=== PATIENT | female | born 1995 | race African-American/Black ===

== ENCOUNTER 2020-11-14 22:45 | Inpatient (IN) | payer OTHER ==
[~2020-11-14 22:45] MED LIST: ABILIFY10 MG PO; ATARAX25 MG PO; BENTYL10 MG PO; CARAFATE1 G1 PO; CIPRO500 MG PO; CYCLOBENZAPRINE5 MG PO; FEXMID7.5 MG PO; HABITROL TOP; HYDROCODON-ACE1 EAC4 PO; K-DUR20 MEQ PO; KETOROLAC TROME10 MG PO; LITHIUM300 MG PO; MEDROL 4MG DOSEP4 MG PO; MELATONIN5 M2 PO; MIRALAX 238GM238 GM PO; MOBIC15 MG PO; NICOTINE GUM4 MG PO; NORCO 5-325 TA1 EACH PO; ONDANSETRON ODT4 MG PO; PAXIL10 MG PO; PEPCID AC20 MG PO; PERCOCET 5-3251 EACH PO; PHENERGAN12.5 M1 PO; PHENERGAN25 M1 PO; PHENERGAN25 MG PR; POTASSIUM CHLO20 ME2 PO; POTASSIUM20 MEQ/11 PO; PRILOSEC20 MG PO; PROMETHAZINE 2525 MG PO; PROMETHAZINE HC25 MG PR; PROMETHEGA12.5 MG/SU PR; PROTONIX 40MG T40 MG PO; REGLAN10 M1 PO; REGLAN10 MG PO; SUCRALFATE1 GM/10 ML PO; TESSALON PERLE100 MG PO; TRAMADOL HCL50 MG PO; TRAZODONE 50MG50 MG PO; TRAZODONE HCL50 MG PO; ULTRAM50 MG PO; VENTOLIN HFA IN18 GM INH; ZOFRAN ODT4 MG SL; ZOFRAN4 MG PO; ZOFRAN8 MG PO
[2020-11-15 00:28] LABS: BASOPHIL 0.2 % (0-2); EOSINOPHIL 0 % (0-5); HCT 47.5 % (37.0-47.0); HGB 16.2 g/dl (12.5-16.0); MCH 28.4 pg (25.0-31.0); MCHC 34.1 g/dL (32.0-36.0); MCV 83.3 fL (78.0-100.0); MONOCYTE 5.6 % (0-12); MPV 11.5 fL (6.0-9.5); NEUTROPHIL 77.6 % (41-80); NRBC 0; PLT 444 K/uL (150-400); RDW 13.9 % (11.5-14.0); WBC 12.9 K/uL (4.0-10.5)
[2020-11-15 00:29] LABS: BILIRUBIN 1+ mg/dL (NEGATIVE); BLOOD TRACE-INTACT Ery/uL (NEGATIVE); CLARITY HAZY (CLEAR); COLOR YELLOW (YELLOW); GLUCOSE (U) NORMAL (NORMAL); LEUKOCYTES NEGATIVE Leu/uL (NEGATIVE); NITRITE NEGATIVE (NEGATIVE); PROTEIN 1+ mg/dL (NEGATIVE); SPECIFIC GRAVITY >=1.030 (1.001-1.030); UROBILINOGEN 0.2 mg/dL (0.2-1.0)
[2020-11-15 00:33] LABS: ECSTASY (MDMA) NEGATIVE (NEGATIVE); MARIJUANA (THC) POSITIVE (NEGATIVE); METHADONE NEGATIVE (NEGATIVE); OPIATES NEGATIVE (NEGATIVE)
[2020-11-15 00:34] LABS: AMPHETAMINES NEGATIVE (NEGATIVE); BARBITURATES NEGATIVE (NEGATIVE); OXYCODONE NEGATIVE (NEGATIVE)
[2020-11-15 00:38] LABS: BACTERIA 4+
[2020-11-15 00:59] LABS: ALBUMIN 4.9 g/dL (3.4-5.0); BILIRUBIN - TOTAL 1.4 mg/dL (0.2-1.0); CREATININE 3.51 mg/dL (0.51-0.95); GLOBULIN (CALCULATION) 5.6 g/dL; MAGNESIUM 3.2 mg/dL (1.8-2.4); TOTAL PROTEIN 10.5 g/dL (6.4-8.2)
[2020-11-15] MEDS ORDERED: DICYCLOMINE HCL20 MG PO (04:59)
[2020-11-15 09:35] LABS: HCG (URINE) SCREEN NEGATIVE (NEGATIVE)
[2020-11-15 10:33] LABS: BASOPHIL 0.3 % (0-2); EOSINOPHIL 0 % (0-5); HCT 44.3 % (37.0-47.0); HGB 15.1 g/dl (12.5-16.0); LYMPHOCYTE 19.9 % (15-48); MCH 28.5 pg (25.0-31.0); MCHC 34.1 g/dL (32.0-36.0); MCV 83.7 fL (78.0-100.0); MONOCYTE 6.4 % (0-12); MPV 11.2 fL (6.0-9.5); NEUTROPHIL 73.1 % (41-80); NRBC 0; PLT 346 K/uL (150-400); RBC 5.29 M/uL (4.20-5.40); RDW 13.6 % (11.5-14.0); WBC 13.8 K/uL (4.0-10.5)
[2020-11-15 10:50] LABS: BUN/CREAT RATIO (CALC) 7.6 RATIO; CREATININE 3.29 mg/dL (0.51-0.95)
[2020-11-15 10:53] LABS: POTASSIUM 3.1 mmol/L (3.5-5.1)
--- NOTE | 2020-11-15 14:42 | NUR ---
PT LIVES WITH SON; INDEPENDENT WITH ADL'S PLEASE ADVISE OF D/C NEEDS. NETWORK PROGRAMMER FOLLOWS PATIENT
[2021-01-31] MEDS ORDERED: GABAPENTIN100 MG PO (09:34)
[2021-04-20] MEDS ORDERED: HYDROCODON-ACE1 EAC2 PO (10:47)
[2021-04-20] MEDS ORDERED: MIRALAX17 GM PO (10:47)
== END 2020-11-15 12:31 | disposition other institution (70) | DRG 369 ==
LOC: FER 22:45 → FMS 11-15 03:13
PROVIDERS: Allergy & Immunology Allergy; Emergency Medicine; ADMIT Internal Medicine
DX: K22.3 Perforation of esophagus (principal); N17.9 Acute kidney failure, unspecified; N39.0 Urinary tract infection, site not specified; J45.909 Unspecified asthma, uncomplicated; K21.9 Gastro-esophageal reflux disease without esophagitis; F41.9 Anxiety disorder, unspecified; F31.9 Bipolar disorder, unspecified; E87.5 Hyperkalemia; F17.210 Nicotine dependence, cigarettes, uncomplicated; E86.0 Dehydration; G43.909 Migraine, unspecified, not intractable, without status migrainosus; R11.10 Vomiting, unspecified; F12.90 Cannabis use, unspecified, uncomplicated; Z20.822 Contact with and (suspected) exposure to COVID-19; D75.1 Secondary polycythemia; Z90.49 Acquired absence of other specified parts of digestive tract; Z98.890 Other specified postprocedural states; Z88.5 Allergy status to narcotic agent; Z88.8 Allergy status to other drugs, medicaments and biological substances; J98.2 Interstitial emphysema
CPT/HCPCS: 36415; 71250; 80048; 80053; 80305; 81001; 83605; 83690; 83735; 84145; 84703; 85025; 93005; 94010; C9113; J0610; J0692; J0696; J1170; J1650; J1885; J2060; J2405; J2543; J2550; J7030; J7120; U0002

== ENCOUNTER 2020-11-21 20:51 | Day surgery (SDCO) | payer OTHER ==
[~2020-11-21] VITALS: Ht 172.7 cm; Wt 63.7 kg
[~2020-11-21 20:51] MED LIST changes: +DICYCLOMINE HCL20 MG PO
[2020-11-21 22:23] LABS: BASOPHIL 0.7 % (0-2); EOSINOPHIL 0.2 % (0-5); HCT 43.5 % (37.0-47.0); HGB 14.6 g/dl (12.5-16.0); LYMPHOCYTE 24.8 % (15-48); MCH 28.3 pg (25.0-31.0); MCHC 33.6 g/dL (32.0-36.0); MCV 84.5 fL (78.0-100.0); MONOCYTE 6.9 % (0-12); MPV 11.1 fL (6.0-9.5); NEUTROPHIL 67.1 % (41-80); NRBC 0; PLT 363 K/uL (150-400); RBC 5.15 M/uL (4.20-5.40); RDW 13.4 % (11.5-14.0); WBC 8.8 K/uL (4.0-10.5)
[2020-11-21 22:39] LABS: ALBUMIN 4.5 g/dL (3.4-5.0); BILIRUBIN - TOTAL 1.1 mg/dL (0.2-1.0); CREATININE 1.21 mg/dL (0.51-0.95); GLOBULIN (CALCULATION) 4.4 g/dL; TOTAL PROTEIN 8.9 g/dL (6.4-8.2)
[2020-11-21 22:54] LABS: LACTIC ACID 2.5 mmol/L (0.4-1.9)
[2020-11-21 22:55] LABS: POTASSIUM 2.4 mmol/L (3.5-5.1)
[2020-11-22 06:48] LABS: BASOPHIL 0.8 % (0-2); EOSINOPHIL 0.8 % (0-5); HCT 39.8 % (37.0-47.0); HGB 13.2 g/dl (12.5-16.0); LYMPHOCYTE 39.4 % (15-48); MCH 28.1 pg (25.0-31.0); MCHC 33.2 g/dL (32.0-36.0); MCV 84.9 fL (78.0-100.0); MONOCYTE 7.9 % (0-12); MPV 11.5 fL (6.0-9.5); NRBC 0; PLT 306 K/uL (150-400); RBC 4.69 M/uL (4.20-5.40); RDW 13.5 % (11.5-14.0); WBC 9.3 K/uL (4.0-10.5)
[2020-11-22 07:21] LABS: BUN/CREAT RATIO (CALC) 8.2 RATIO; CREATININE 0.85 mg/dL (0.51-0.95); POTASSIUM 3.2 mmol/L (3.5-5.1)
--- NOTE | 2020-11-22 09:08 | NUR ---
LIVES WITH FAMILY AND REPORTS SHE IS INDEPENDENT WITH ADL'S PLEASE ADVISE OF ANY DISCHARGE NEEDS
[2020-11-23 05:55] LABS: BASOPHIL 0.8 % (0-2); EOSINOPHIL 2.7 % (0-5); HGB 11.8 g/dl (12.5-16.0); LYMPHOCYTE 59.4 % (15-48); MCH 28.5 pg (25.0-31.0); MCHC 33.7 g/dL (32.0-36.0); MCV 84.5 fL (78.0-100.0); MONOCYTE 5.9 % (0-12); MPV 11.2 fL (6.0-9.5); NRBC 0; PLT 272 K/uL (150-400); RBC 4.14 M/uL (4.20-5.40); RDW 13.2 % (11.5-14.0)
[2020-11-23 06:18] LABS: BUN/CREAT RATIO (CALC) 8.9 RATIO; CREATININE 0.79 mg/dL (0.51-0.95); POTASSIUM 2.9 mmol/L (3.5-5.1)
[2020-11-24 11:23] LABS: HGB 11.3 g/dl (12.5-16.0); MCH 28.5 pg (25.0-31.0); MCHC 32.3 g/dL (32.0-36.0); MCV 88.4 fL (78.0-100.0); MPV 11.5 fL (6.0-9.5); RBC 3.96 M/uL (4.20-5.40); RDW 13.5 % (11.5-14.0); WBC 4.4 K/uL (4.0-10.5)
[2020-11-24 12:11] LABS: BUN/CREAT RATIO (CALC) 4.7 RATIO; CREATININE 0.86 mg/dL (0.51-0.95); MAGNESIUM 2.1 mg/dL (1.8-2.4); POTASSIUM 4.3 mmol/L (3.5-5.1)
[2020-11-24] MEDS ORDERED: ONDANSETRON ODT4 MG PO (15:06)
[2020-11-24] MEDS ORDERED: NORCO 5-325 TA1 EACH PO (15:06)
[2021-01-31] MEDS ORDERED: GABAPENTIN100 MG PO (09:34)
[2021-04-20] MEDS ORDERED: MIRALAX17 GM PO (10:47)
[2021-04-20] MEDS ORDERED: HYDROCODON-ACE1 EAC2 PO (10:47)
== END 2020-11-24 16:45 | disposition home or self-care (01) ==
LOC: FER 20:51 → FMS 11-22 00:36
PROVIDERS: Emergency Medicine Emergency Medical Services; Internal Medicine; Nurse Practitioner; ADMIT Internal Medicine
DX: R11.15 Cyclical vomiting syndrome unrelated to migraine (principal); K29.70 Gastritis, unspecified, without bleeding; K44.9 Diaphragmatic hernia without obstruction or gangrene; F12.188 Cannabis abuse with other cannabis-induced disorder; F31.9 Bipolar disorder, unspecified; F17.210 Nicotine dependence, cigarettes, uncomplicated; E86.0 Dehydration; E87.6 Hypokalemia; J45.909 Unspecified asthma, uncomplicated; Z90.49 Acquired absence of other specified parts of digestive tract; Z98.890 Other specified postprocedural states; Z88.6 Allergy status to analgesic agent; Z88.8 Allergy status to other drugs, medicaments and biological substances; Z20.822 Contact with and (suspected) exposure to COVID-19
CPT/HCPCS: 36415; 74022; 80048; 80053; 83605; 83690; 83735; 84145; 84703; 85025; C9113; G0378; J0780; J1170; J2405; J2550; J3480; J7120; U0002

== ENCOUNTER 2020-11-29 17:19 | Emergency (ER) | payer OTHER ==
[2020-11-29 19:11] LABS: BILIRUBIN NEGATIVE (NEGATIVE); BLOOD 3+ Ery/uL (NEGATIVE); CLARITY HAZY (CLEAR); COLOR YELLOW (YELLOW); GLUCOSE (U) NORMAL (NORMAL); LEUKOCYTES NEGATIVE Leu/uL (NEGATIVE); NITRITE NEGATIVE (NEGATIVE); PROTEIN 1+ mg/dL (NEGATIVE); SPECIFIC GRAVITY 1.015 (1.001-1.030); UROBILINOGEN 0.2 mg/dL (0.2-1.0); pH 8.5 (5.0-9.0)
[2020-11-29 19:15] LABS: AMPHETAMINES NEGATIVE (NEGATIVE); BARBITURATES NEGATIVE (NEGATIVE); ECSTASY (MDMA) NEGATIVE (NEGATIVE); MARIJUANA (THC) POSITIVE (NEGATIVE); METHADONE NEGATIVE (NEGATIVE); OPIATES POSITIVE (NEGATIVE); OXYCODONE NEGATIVE (NEGATIVE)
[2020-11-29 19:24] LABS: BACTERIA 1+; SQUAMOUS EPITHELIAL CELLS 20-50; URINARY RBC TNTC
[2020-11-29 20:56] LABS: BASOPHIL 0.6 % (0-2); EOSINOPHIL 0.1 % (0-5); HCT 35.9 % (37.0-47.0); LYMPHOCYTE 15.1 % (15-48); MCH 28.9 pg (25.0-31.0); MCHC 33.4 g/dL (32.0-36.0); MCV 86.5 fL (78.0-100.0); MONOCYTE 4.2 % (0-12); MPV 11.3 fL (6.0-9.5); NEUTROPHIL 79.7 % (41-80); NRBC 0; PLT 277 K/uL (150-400); RBC 4.15 M/uL (4.20-5.40); RDW 14.6 % (11.5-14.0); WBC 7.2 K/uL (4.0-10.5)
[2020-11-29 21:13] LABS: ALBUMIN 3.8 g/dL (3.4-5.0); BILIRUBIN - TOTAL 0.8 mg/dL (0.2-1.0); BUN/CREAT RATIO (CALC) 7.9 RATIO; CREATININE 0.89 mg/dL (0.51-0.95); GLOBULIN (CALCULATION) 3.7 g/dL; POTASSIUM 3.5 mmol/L (3.5-5.1); TOTAL PROTEIN 7.5 g/dL (6.4-8.2)
[2020-11-29 21:18] LABS: LACTIC ACID 1.6 mmol/L (0.4-1.9)
[2020-11-29] MEDS ORDERED: ZOFRAN4 M1 PO (21:35)
[2021-01-31] MEDS ORDERED: GABAPENTIN100 MG PO (09:34)
[2021-04-20] MEDS ORDERED: MIRALAX17 GM PO (10:47)
[2021-04-20] MEDS ORDERED: HYDROCODON-ACE1 EAC2 PO (10:47)
== END 2020-11-29 21:55 | disposition home or self-care (01) ==
LOC: FER 17:19
PROVIDERS: Nurse Practitioner Family
DX: R10.84 Generalized abdominal pain (principal); R11.2 Nausea with vomiting, unspecified; F19.90 Other psychoactive substance use, unspecified, uncomplicated; J45.909 Unspecified asthma, uncomplicated; F17.210 Nicotine dependence, cigarettes, uncomplicated; Z87.19 Personal history of other diseases of the digestive system; Z90.49 Acquired absence of other specified parts of digestive tract; Z88.5 Allergy status to narcotic agent; Z88.8 Allergy status to other drugs, medicaments and biological substances
CPT/HCPCS: 36415; 80053; 80305; 81001; 83605; 85025; 99284; J1630; J1885

== ENCOUNTER 2020-12-01 13:42 | Emergency (ER) | payer OTHER ==
[~2020-12-01 13:42] MED LIST changes: +ZOFRAN4 M1 PO
[2020-12-01 17:09] LABS: BASOPHIL 0.7 % (0-2); EOSINOPHIL 0.3 % (0-5); HCT 40.3 % (37.0-47.0); HGB 13.6 g/dl (12.5-16.0); MCH 28.5 pg (25.0-31.0); MCHC 33.7 g/dL (32.0-36.0); MCV 84.5 fL (78.0-100.0); MONOCYTE 6.5 % (0-12); MPV 11.6 fL (6.0-9.5); NEUTROPHIL 64.1 % (41-80); NRBC 0; PLT 335 K/uL (150-400); RBC 4.77 M/uL (4.20-5.40); RDW 14.3 % (11.5-14.0); WBC 7.6 K/uL (4.0-10.5)
[2020-12-01 17:22] LABS: BUN/CREAT RATIO (CALC) 13.2 RATIO; CREATININE 0.91 mg/dL (0.51-0.95); POTASSIUM 2.9 mmol/L (3.5-5.1)
[2020-12-01 17:26] LABS: BILIRUBIN NEGATIVE (NEGATIVE); BLOOD NEGATIVE Ery/uL (NEGATIVE); CLARITY CLOUDY (CLEAR); COLOR YELLOW (YELLOW); GLUCOSE (U) NORMAL (NORMAL); LEUKOCYTES NEGATIVE Leu/uL (NEGATIVE); NITRITE NEGATIVE (NEGATIVE); PROTEIN 1+ mg/dL (NEGATIVE); SPECIFIC GRAVITY >=1.030 (1.001-1.030)
[2020-12-01 17:32] LABS: AMORPHOUS URATES CRYSTALS MODERATE; BACTERIA TRACE
[2020-12-01] MEDS ORDERED: PHENERGAN25 M1 PO (19:51)
[2021-01-31] MEDS ORDERED: GABAPENTIN100 MG PO (09:34)
[2021-04-20] MEDS ORDERED: HYDROCODON-ACE1 EAC2 PO (10:47)
[2021-04-20] MEDS ORDERED: MIRALAX17 GM PO (10:47)
== END 2020-12-01 20:20 | disposition home or self-care (01) ==
LOC: FER 13:42
PROVIDERS: Nurse Practitioner Family
DX: R11.10 Vomiting, unspecified (principal); Z90.49 Acquired absence of other specified parts of digestive tract; Z88.5 Allergy status to narcotic agent; Z88.8 Allergy status to other drugs, medicaments and biological substances
CPT/HCPCS: 36415; 80048; 81001; 85025; 93005; 96372; J1630; J2550; J3480; J7030

== ENCOUNTER 2020-12-03 11:50 | Inpatient (IN) | payer OTHER ==
[~2020-12-03] VITALS: Ht 170.2 cm; Wt 66.4 kg
[2020-12-03 13:28] LABS: BASOPHIL 0.8 % (0-2); EOSINOPHIL 0.8 % (0-5); HCT 39.2 % (37.0-47.0); HGB 13.3 g/dl (12.5-16.0); LYMPHOCYTE 20.2 % (15-48); MCHC 33.9 g/dL (32.0-36.0); MCV 85.6 fL (78.0-100.0); MONOCYTE 5.2 % (0-12); MPV 10.9 fL (6.0-9.5); NEUTROPHIL 72.8 % (41-80); NRBC 0; PLT 277 K/uL (150-400); RBC 4.58 M/uL (4.20-5.40); RDW 14.4 % (11.5-14.0); WBC 8.8 K/uL (4.0-10.5)
[2020-12-03 13:46] LABS: ALBUMIN 4.2 g/dL (3.4-5.0); BILIRUBIN - TOTAL 2.5 mg/dL (0.2-1.0); BUN/CREAT RATIO (CALC) 8.1 RATIO; CREATININE 0.74 mg/dL (0.51-0.95); POTASSIUM 2.7 mmol/L (3.5-5.1); TOTAL PROTEIN 8.2 g/dL (6.4-8.2)
[2020-12-03] MEDS ORDERED: LEVSIN0.125 MG PO (17:41)
[2020-12-03] MEDS ORDERED: VRAYLAR1.5 MG PO (17:42)
[2020-12-03 22:47] LABS: BILIRUBIN 1+ mg/dL (NEGATIVE); BLOOD NEGATIVE Ery/uL (NEGATIVE); CLARITY HAZY (CLEAR); COLOR YELLOW (YELLOW); GLUCOSE (U) NORMAL (NORMAL); LEUKOCYTES NEGATIVE Leu/uL (NEGATIVE); NITRITE NEGATIVE (NEGATIVE); PROTEIN TRACE (LOW) mg/dL (NEGATIVE)
[2020-12-03 22:56] LABS: AMORPHOUS URATES CRYSTALS MODERATE; MUCOUS MODERATE; URINARY RBC RARE; URINARY WBC RARE
[2020-12-04 07:22] LABS: CREATININE 0.7 mg/dL (0.51-0.95); MAGNESIUM 2.4 mg/dL (1.8-2.4); PHOSPHORUS 2.8 mg/dL (2.6-4.7); POTASSIUM 3.1 mmol/L (3.5-5.1)
[2020-12-05 07:23] LABS: BASOPHIL 1.1 % (0-2); HCT 34.3 % (37.0-47.0); HGB 11.3 g/dl (12.5-16.0); LYMPHOCYTE 42.5 % (15-48); MCH 28.8 pg (25.0-31.0); MCHC 32.9 g/dL (32.0-36.0); MCV 87.3 fL (78.0-100.0); MONOCYTE 6.4 % (0-12); MPV 11.6 fL (6.0-9.5); NEUTROPHIL 47.7 % (41-80); NRBC 0; RBC 3.93 M/uL (4.20-5.40); RDW 14.4 % (11.5-14.0); WBC 6.5 K/uL (4.0-10.5)
[2020-12-05 07:28] LABS: ALBUMIN 3.4 g/dL (3.4-5.0); BUN/CREAT RATIO (CALC) 6.1 RATIO; CREATININE 0.66 mg/dL (0.51-0.95); GLOBULIN (CALCULATION) 3.5 g/dL; MAGNESIUM 2.3 mg/dL (1.8-2.4); POTASSIUM 3.1 mmol/L (3.5-5.1); TOTAL PROTEIN 6.9 g/dL (6.4-8.2)
[2020-12-05 07:46] LABS: PLT 229 K/uL (150-400)
--- NOTE | 2020-12-05 14:33 | NUR ---
PT LIVES WITH CHILD REPORTS SHE IS INDEPENDENT
[2020-12-06] MEDS ORDERED: HYDROCODON-ACE1 EAC2 PO (12:25)
--- NOTE | 2020-12-06 17:31 | NUR ---
12/06/20 Patient reports to have recently spoken to her psychiatrist rt medication changes for treatment of bipolar disease.
[2021-01-31] MEDS ORDERED: GABAPENTIN100 MG PO (09:34)
[2021-04-20] MEDS ORDERED: HYDROCODON-ACE1 EAC2 PO (10:47)
[2021-04-20] MEDS ORDERED: MIRALAX17 GM PO (10:47)
== END 2020-12-06 14:10 | disposition home or self-care (01) | DRG 641 ==
LOC: FER 11:50 → FMS 14:05
PROVIDERS: Emergency Medicine; ADMIT Internal Medicine
DX: E87.6 Hypokalemia (principal); F31.9 Bipolar disorder, unspecified; R11.15 Cyclical vomiting syndrome unrelated to migraine; E80.6 Other disorders of bilirubin metabolism; F17.210 Nicotine dependence, cigarettes, uncomplicated; Z90.49 Acquired absence of other specified parts of digestive tract; Z98.890 Other specified postprocedural states; Z88.5 Allergy status to narcotic agent; Z88.8 Allergy status to other drugs, medicaments and biological substances
CPT/HCPCS: 36415; 80048; 80053; 81001; 82607; 83690; 83735; 84100; 85025; 94010; 99284; C9113; J0780; J1170; J1642; J1650; J1885; J2060; J2405; J2550; J3480; J7120; Q0169

== ENCOUNTER 2020-12-18 17:46 | Emergency (ER) | payer OTHER ==
[~2020-12-18 17:46] MED LIST changes: +HYDROCODON-ACE1 EAC2 PO; +LEVSIN0.125 MG PO; +VRAYLAR1.5 MG PO
[2020-12-18 19:27] LABS: BASOPHIL 0.7 % (0-2); EOSINOPHIL 0.4 % (0-5); HGB 13.4 g/dl (12.5-16.0); LYMPHOCYTE 23.2 % (15-48); MCHC 34.4 g/dL (32.0-36.0); MCV 84.4 fL (78.0-100.0); MONOCYTE 5.2 % (0-12); MPV 10.7 fL (6.0-9.5); NEUTROPHIL 70.2 % (41-80); NRBC 0; PLT 327 K/uL (150-400); RBC 4.62 M/uL (4.20-5.40); RDW 14.6 % (11.5-14.0); WBC 7.3 K/uL (4.0-10.5)
[2020-12-18 19:44] LABS: BILIRUBIN NEGATIVE (NEGATIVE); BLOOD NEGATIVE Ery/uL (NEGATIVE); CLARITY TURBID (CLEAR); COLOR YELLOW (YELLOW); GLUCOSE (U) NORMAL (NORMAL); LEUKOCYTES NEGATIVE Leu/uL (NEGATIVE); NITRITE NEGATIVE (NEGATIVE); PROTEIN 1+ mg/dL (NEGATIVE); SPECIFIC GRAVITY >=1.030 (1.001-1.030)
[2020-12-18 19:51] LABS: ECSTASY (MDMA) NEGATIVE (NEGATIVE); MARIJUANA (THC) POSITIVE (NEGATIVE); METHADONE NEGATIVE (NEGATIVE); OPIATES POSITIVE (NEGATIVE)
[2020-12-18 19:52] LABS: AMPHETAMINES NEGATIVE (NEGATIVE); BARBITURATES NEGATIVE (NEGATIVE); OXYCODONE NEGATIVE (NEGATIVE)
[2020-12-18 19:58] LABS: AMORPHOUS URATES CRYSTALS LARGE; URINARY WBC RARE
[2020-12-18 20:16] LABS: ALBUMIN 4.3 g/dL (3.4-5.0); BILIRUBIN - TOTAL 1.9 mg/dL (0.2-1.0); CREATININE 0.87 mg/dL (0.51-0.95); GLOBULIN (CALCULATION) 3.5 g/dL; POTASSIUM 3.5 mmol/L (3.5-5.1); TOTAL PROTEIN 7.8 g/dL (6.4-8.2)
[2021-01-31] MEDS ORDERED: GABAPENTIN100 MG PO (09:34)
[2021-04-20] MEDS ORDERED: MIRALAX17 GM PO (10:47)
[2021-04-20] MEDS ORDERED: HYDROCODON-ACE1 EAC2 PO (10:47)
== END 2020-12-18 21:27 | disposition home or self-care (01) ==
LOC: FER 17:46
PROVIDERS: Nurse Practitioner Family
DX: R10.84 Generalized abdominal pain (principal); R11.2 Nausea with vomiting, unspecified; R19.7 Diarrhea, unspecified; R63.0 Anorexia; F17.210 Nicotine dependence, cigarettes, uncomplicated; Z88.5 Allergy status to narcotic agent; Z88.8 Allergy status to other drugs, medicaments and biological substances; Z87.19 Personal history of other diseases of the digestive system; Z87.42 Personal history of other diseases of the female genital tract
CPT/HCPCS: 36415; 80053; 80305; 81001; 85025; J2405; J7030

== ENCOUNTER 2021-01-11 16:05 | Emergency (ER) | payer OTHER ==
[2021-01-11 19:18] LABS: BASOPHIL 0.7 % (0-2); EOSINOPHIL 0.3 % (0-5); HCT 33.5 % (37.0-47.0); HGB 11.4 g/dl (12.5-16.0); LYMPHOCYTE 23.4 % (15-48); MCH 29.5 pg (25.0-31.0); MCV 86.8 fL (78.0-100.0); MONOCYTE 4.8 % (0-12); MPV 10.7 fL (6.0-9.5); NEUTROPHIL 70.6 % (41-80); NRBC 0; PLT 233 K/uL (150-400); RBC 3.86 M/uL (4.20-5.40); RDW 14.3 % (11.5-14.0); WBC 6.1 K/uL (4.0-10.5)
[2021-01-11 19:34] LABS: ALBUMIN 3.6 g/dL (3.4-5.0); BILIRUBIN - TOTAL 1.6 mg/dL (0.2-1.0); BUN/CREAT RATIO (CALC) 14.1 RATIO; CREATININE 0.78 mg/dL (0.51-0.95); GLOBULIN (CALCULATION) 3.2 g/dL; POTASSIUM 3.4 mmol/L (3.5-5.1); TOTAL PROTEIN 6.8 g/dL (6.4-8.2)
[2021-01-11 20:26] LABS: AMPHETAMINES NEGATIVE (NEGATIVE); BARBITURATES NEGATIVE (NEGATIVE); ECSTASY (MDMA) NEGATIVE (NEGATIVE); MARIJUANA (THC) POSITIVE (NEGATIVE); METHADONE NEGATIVE (NEGATIVE); OPIATES POSITIVE (NEGATIVE); OXYCODONE NEGATIVE (NEGATIVE)
[2021-01-11 21:22] LABS: CORONAVIRUS 2019 SARS-COV-2 NEGATIVE (NEGATIVE); INFLUENZA A NAA NEGATIVE (NEGATIVE)
[2021-01-31] MEDS ORDERED: GABAPENTIN100 MG PO (09:34)
[2021-04-20] MEDS ORDERED: MIRALAX17 GM PO (10:47)
[2021-04-20] MEDS ORDERED: HYDROCODON-ACE1 EAC2 PO (10:47)
== END 2021-01-11 21:04 | disposition other institution (70) ==
LOC: FER 16:05
PROVIDERS: Emergency Medicine
DX: R11.2 Nausea with vomiting, unspecified (principal); Z20.822 Contact with and (suspected) exposure to COVID-19; Z87.19 Personal history of other diseases of the digestive system; Z90.49 Acquired absence of other specified parts of digestive tract; Z87.42 Personal history of other diseases of the female genital tract; Z88.5 Allergy status to narcotic agent; Z88.8 Allergy status to other drugs, medicaments and biological substances
CPT/HCPCS: 36415; 71045; 80053; 80305; 83690; 84484; 85025; 93005; J1170; J2550; J7030; U0002

== ENCOUNTER 2021-01-31 18:35 | Emergency (ER) | payer OTHER ==
[~2021-01-31 18:35] MED LIST changes: +GABAPENTIN100 MG PO
[2021-01-31 19:51] LABS: EOSINOPHIL 1.2 % (0-5); HGB 12.3 g/dl (12.5-16.0); LYMPHOCYTE 41.8 % (15-48); MCH 29.7 pg (25.0-31.0); MCHC 34.2 g/dL (32.0-36.0); MPV 10.8 fL (6.0-9.5); NEUTROPHIL 46.8 % (41-80); NRBC 0; PLT 279 K/uL (150-400); RBC 4.14 M/uL (4.20-5.40); RDW 13.6 % (11.5-14.0); WBC 5.1 K/uL (4.0-10.5)
[2021-01-31 19:59] LABS: ALBUMIN 3.8 g/dL (3.4-5.0); BUN/CREAT RATIO (CALC) 17.3 RATIO; CREATININE 0.75 mg/dL (0.51-0.95); GLOBULIN (CALCULATION) 3.7 g/dL; TOTAL PROTEIN 7.5 g/dL (6.4-8.2)
[2021-01-31] MEDS ORDERED: PROMETHAZINE HC25 MG PR (21:12)
[2021-04-20] MEDS ORDERED: MIRALAX17 GM PO (10:47)
[2021-04-20] MEDS ORDERED: HYDROCODON-ACE1 EAC2 PO (10:47)
== END 2021-01-31 21:33 | disposition home or self-care (01) ==
LOC: FER 18:35
PROVIDERS: Emergency Medicine
DX: K31.84 Gastroparesis (principal); F17.210 Nicotine dependence, cigarettes, uncomplicated; Z90.49 Acquired absence of other specified parts of digestive tract; Z88.5 Allergy status to narcotic agent; Z88.8 Allergy status to other drugs, medicaments and biological substances
CPT/HCPCS: 36415; 80053; 85025; J0595; J1885; J2550; J2765

== ENCOUNTER 2021-03-30 14:57 | Emergency (ER) | payer OTHER ==
[2021-03-30 17:32] LABS: BASOPHIL 0.8 % (0-2); EOSINOPHIL 0.3 % (0-5); HCT 40.1 % (37.0-47.0); HGB 13.8 g/dl (12.5-16.0); LYMPHOCYTE 16.3 % (15-48); MCH 29.4 pg (25.0-31.0); MCHC 34.4 g/dL (32.0-36.0); MCV 85.5 fL (78.0-100.0); MONOCYTE 4.6 % (0-12); MPV 11.3 fL (6.0-9.5); NEUTROPHIL 77.6 % (41-80); NRBC 0; PLT 291 K/uL (150-400); RBC 4.69 M/uL (4.20-5.40); RDW 13.2 % (11.5-14.0); WBC 11.9 K/uL (4.0-10.5)
[2021-03-30 17:37] LABS: BILIRUBIN NEGATIVE (NEGATIVE); BLOOD NEGATIVE Ery/uL (NEGATIVE); CLARITY CLEAR (CLEAR); COLOR YELLOW (YELLOW); GLUCOSE (U) NORMAL (NORMAL); LEUKOCYTES NEGATIVE Leu/uL (NEGATIVE); NITRITE NEGATIVE (NEGATIVE); PROTEIN 1+ mg/dL (NEGATIVE); SPECIFIC GRAVITY >=1.030 (1.001-1.030); pH 6.5 (5.0-9.0)
[2021-03-30 17:41] LABS: AMPHETAMINES NEGATIVE (NEGATIVE); BARBITURATES NEGATIVE (NEGATIVE); ECSTASY (MDMA) NEGATIVE (NEGATIVE); MARIJUANA (THC) POSITIVE (NEGATIVE); METHADONE NEGATIVE (NEGATIVE); OPIATES POSITIVE (NEGATIVE); OXYCODONE NEGATIVE (NEGATIVE)
[2021-03-30 17:43] LABS: BACTERIA TRACE; MUCOUS TRACE; URINARY RBC RARE; URINARY WBC RARE
[2021-03-30 17:46] LABS: ALBUMIN 4.6 g/dL (3.4-5.0); BILIRUBIN - TOTAL 1.5 mg/dL (0.2-1.0); BUN/CREAT RATIO (CALC) 10.7 RATIO; CREATININE 0.84 mg/dL (0.51-0.95); GLOBULIN (CALCULATION) 4.3 g/dL; TOTAL PROTEIN 8.9 g/dL (6.4-8.2)
[2021-04-20] MEDS ORDERED: MIRALAX17 GM PO (10:47)
[2021-04-20] MEDS ORDERED: HYDROCODON-ACE1 EAC2 PO (10:47)
== END 2021-03-30 18:19 | disposition home or self-care (01) ==
LOC: FER 14:57
PROVIDERS: Physician Assistant
DX: R10.84 Generalized abdominal pain (principal); R11.2 Nausea with vomiting, unspecified; R19.7 Diarrhea, unspecified; F17.200 Nicotine dependence, unspecified, uncomplicated; Z90.49 Acquired absence of other specified parts of digestive tract; Z88.5 Allergy status to narcotic agent
CPT/HCPCS: 36415; 80053; 80305; 81001; 83690; 84703; 85025; 99284; J1200; J2405; J7030

== ENCOUNTER 2021-04-05 00:47 | Day surgery (SDCO) | payer OTHER ==
[~2021-04-05] VITALS: Ht 172.7 cm; Wt 69.6 kg
[2021-04-05 01:57] LABS: BASOPHIL 0.6 % (0-2); EOSINOPHIL 1.1 % (0-5); HCT 45.5 % (37.0-47.0); HGB 15.6 g/dl (12.5-16.0); LYMPHOCYTE 32.6 % (15-48); MCH 29.4 pg (25.0-31.0); MCHC 34.3 g/dL (32.0-36.0); MCV 85.7 fL (78.0-100.0); MPV 11.6 fL (6.0-9.5); NEUTROPHIL 59.5 % (41-80); NRBC 0; PLT 281 K/uL (150-400); RBC 5.31 M/uL (4.20-5.40); RDW 12.9 % (11.5-14.0); WBC 8.2 K/uL (4.0-10.5)
[2021-04-05 02:10] LABS: GLUCOSE 118 mg/dL (74-106); LACTIC ACID 1.7 mmol/L (0.4-1.9)
[2021-04-05 02:11] LABS: ALBUMIN 4.6 g/dL (3.4-5.0); ALKALINE PHOSHATASE 106 U/L (46-116); ALT 145 U/L (14-59); AST 160 U/L (15-37); BILIRUBIN - TOTAL 2.3 mg/dL (0.2-1.0); BUN 17 mg/dL (7-18); C-REACTIVE PROTEIN < 0.20 mg/dL (<=0.90); CHLORIDE 95 mmol/L (98-107); CO2 (BICARBONATE) 36 mmol/L (21-32); CREATININE 1.03 mg/dL (0.51-0.95); GLOBULIN (CALCULATION) 4.9 g/dL; LIPASE 55 U/L (73-393); POTASSIUM 3.1 mmol/L (3.5-5.1); TOTAL PROTEIN 9.5 g/dL (6.4-8.2)
[2021-04-05] MEDS ORDERED: SEROQUEL 25MG T25 MG PO (06:06)
[2021-04-05 13:17] LABS: BASOPHIL 0.8 % (0-2); EOSINOPHIL 2.9 % (0-5); HCT 34.7 % (37.0-47.0); LYMPHOCYTE 42.7 % (15-48); MCH 29.9 pg (25.0-31.0); MCHC 34.6 g/dL (32.0-36.0); MCV 86.3 fL (78.0-100.0); MPV 10.9 fL (6.0-9.5); NEUTROPHIL 45.5 % (41-80); NRBC 0; PLT 196 K/uL (150-400); RBC 4.02 M/uL (4.20-5.40); RDW 12.8 % (11.5-14.0); WBC 7.4 K/uL (4.0-10.5)
[2021-04-05 13:55] LABS: ALBUMIN 3.1 g/dL (3.4-5.0); CREATININE 0.92 mg/dL (0.51-0.95); GLOBULIN (CALCULATION) 3.2 g/dL; TOTAL PROTEIN 6.3 g/dL (6.4-8.2)
[2021-04-05 13:56] LABS: BILIRUBIN - TOTAL 1.5 mg/dL (0.2-1.0)
[2021-04-05 15:04] LABS: BILIRUBIN NEGATIVE (NEGATIVE); BLOOD NEGATIVE Ery/uL (NEGATIVE); CLARITY CLEAR (CLEAR); COLOR YELLOW (YELLOW); GLUCOSE (U) NORMAL (NORMAL); LEUKOCYTES NEGATIVE Leu/uL (NEGATIVE); NITRITE NEGATIVE (NEGATIVE); PROTEIN 1+ mg/dL (NEGATIVE); SPECIFIC GRAVITY 1.025 (1.001-1.030)
[2021-04-05 15:07] LABS: HCG (URINE) SCREEN NEGATIVE (NEGATIVE)
[2021-04-05 15:09] LABS: ECSTASY (MDMA) NEGATIVE (NEGATIVE); MARIJUANA (THC) POSITIVE (NEGATIVE); METHADONE NEGATIVE (NEGATIVE); OPIATES POSITIVE (NEGATIVE)
[2021-04-05 15:10] LABS: AMPHETAMINES NEGATIVE (NEGATIVE); BARBITURATES NEGATIVE (NEGATIVE); OXYCODONE NEGATIVE (NEGATIVE)
[2021-04-05 15:12] LABS: SQUAMOUS EPITHELIAL CELLS RARE
[2021-04-05 15:19] LABS: MAGNESIUM 2.2 mg/dL (1.8-2.4)
[2021-04-05] MEDS ORDERED: K-DUR20 MEQ PO (15:19)
[2021-04-05] MEDS ORDERED: ONDANSETRON ODT4 MG PO (15:19)
[2021-04-05] MEDS ORDERED: PHENERGAN25 M1 PO (15:19)
--- NOTE | 2021-04-05 16:58 | NUR ---
PATIENT'S IV LOOKED INFILTRATED, LOOKED TO SEE IF I COULD GET AN IV, SHE HAD NOT ALOT THAT LOOK LIKE I COULD GET THEM. CALL HOUSE FOR HELP, WHEN HOUSE WENT INTO THE ROOM THE PATIENT STATED THAT SHE WAS GOING HOME THAT SHE DID NOT WANT TO BE STUCK AGAIN, I WAS NOT AWARE OF THE POSSIBLILY OF HER BEING DISCHARGED. CONTATCTED DR HUSAIN ABOUT WHAT THE PATIENT STATED. HE SAID THAT SHE COULD GO HOME IF SHE EATS AND TOLERATED SHE COULD LEAVE. SHE STATED THAT SHE WANTED SOMETHING AND WAS READY TO LEAVE. SHE TOLERATED CHICKEN TENDERS, FRIES, FRUIT. PATIENT WAS GIVEN INSTRUCTIONS AND WAS DC HOME. NO ISSUES OR CONCERNS WERE MADE EXCEPT TO GET INFORMATION ABOUT [employer]. PRINTED UP INFORMATION FOR INTERNET WITH MEETINGS SITES AND PHONE NUMBERS FOR PATIENT. TOLERATED.
[2021-04-06 06:09] LABS: HBSAG SCREEN Negative (Negative); HEP A AB, IGM Negative (Negative); HEP B CORE AB, IGM Negative (Negative); HEP C VIRUS AB <0.1 (0.0-0.9)
[2021-04-20] MEDS ORDERED: HYDROCODON-ACE1 EAC2 PO (10:47)
[2021-04-20] MEDS ORDERED: MIRALAX17 GM PO (10:47)
== END 2021-04-05 16:50 | disposition home or self-care (01) ==
LOC: FER 00:47 → FMS 04:38
PROVIDERS: Emergency Medicine Emergency Medical Services; Nurse Practitioner; ADMIT Allergy & Immunology Allergy
DX: E87.6 Hypokalemia (principal); F12.90 Cannabis use, unspecified, uncomplicated; F12.19 Cannabis abuse with unspecified cannabis-induced disorder; F31.9 Bipolar disorder, unspecified; F17.210 Nicotine dependence, cigarettes, uncomplicated; K31.84 Gastroparesis; R11.15 Cyclical vomiting syndrome unrelated to migraine; Z79.899 Other long term (current) drug therapy; Z88.5 Allergy status to narcotic agent; Z88.8 Allergy status to other drugs, medicaments and biological substances; Z90.49 Acquired absence of other specified parts of digestive tract; Z98.890 Other specified postprocedural states; Z20.822 Contact with and (suspected) exposure to COVID-19
CPT/HCPCS: 36415; 74022; 80053; 80074; 80305; 81001; 83605; 83690; 83735; 84100; 84145; 84703; 85025; 86140; 94010; 94667; C9113; G0378; J1170; J1885; J2060; J2405; J2550; J3480; J7120; U0002

== ENCOUNTER → 2021-04-20 | Day surgery (SDC) | payer OTHER ==
[~2021-04-20] VITALS: Ht 170.2 cm; Wt 70.5 kg
[~2021-04-20] MED LIST changes: +MIRALAX17 GM PO; +SEROQUEL 25MG T25 MG PO
[2021-04-20 08:02] LABS: HCG (URINE) SCREEN NEGATIVE (NEGATIVE)
--- NOTE | 2021-04-20 13:20 | NUR ---
NEW NOTE ADDED FROM MD AFTER RN REVIEWED. NOTICED WHEN FINISHING AND FINALIZING CHART AFTER PT DISCHARGE. CALLED PT AND DISCUSSED MD ORDERS TO START BABY ASPIRIN DAILY, IN 2 DAYS. PT READ BACK AND VERIFIED.
== END | disposition home or self-care (01) ==
LOC: FAS 07:31
PROVIDERS: Surgery
DX: I87.8 Other specified disorders of veins (principal); R11.2 Nausea with vomiting, unspecified; G89.29 Other chronic pain; N17.9 Acute kidney failure, unspecified; F31.9 Bipolar disorder, unspecified; E87.6 Hypokalemia; G43.909 Migraine, unspecified, not intractable, without status migrainosus; Z88.5 Allergy status to narcotic agent; Z88.8 Allergy status to other drugs, medicaments and biological substances; Z90.49 Acquired absence of other specified parts of digestive tract; F17.210 Nicotine dependence, cigarettes, uncomplicated
CPT/HCPCS: 71045; 76000; 77001; 84703; C1788; J0690; J1100; J1170; J1644; J1885; J2250; J2405; J2704; J3010; J7120

== ENCOUNTER 2021-08-07 08:45 | Inpatient (IN) | payer OTHER ==
[~2021-08-07] VITALS: Ht 170.2 cm; Wt 77.2 kg
[2021-08-07 10:36] LABS: BASOPHIL 0.9 % (0-2); EOSINOPHIL 0.5 % (0-5); HCT 46.6 % (37.0-47.0); HGB 15.6 g/dl (12.5-16.0); LYMPHOCYTE 25.4 % (15-48); MCH 28.9 pg (25.0-31.0); MCHC 33.5 g/dL (32.0-36.0); MCV 86.3 fL (78.0-100.0); MONOCYTE 7.3 % (0-12); MPV 10.9 fL (6.0-9.5); NEUTROPHIL 65.5 % (41-80); NRBC 0; PLT 260 K/uL (150-400); RDW 13.3 % (11.5-14.0); WBC 8.1 K/uL (4.0-10.5)
[2021-08-07 10:50] LABS: ALBUMIN 4.6 g/dL (3.4-5.0); BILIRUBIN - TOTAL 0.9 mg/dL (0.2-1.0); BUN/CREAT RATIO (CALC) 13.9 RATIO; CREATININE 1.01 mg/dL (0.51-0.95); GLOBULIN (CALCULATION) 4.6 g/dL; MAGNESIUM 2.6 mg/dL (1.8-2.4); POTASSIUM 3.4 mmol/L (3.5-5.1); TOTAL PROTEIN 9.2 g/dL (6.4-8.2)
[2021-08-07] MEDS ORDERED: VRAYLAR6 MG PO (18:00)
[2021-08-07 21:17] LABS: BILIRUBIN NEGATIVE (NEGATIVE); BLOOD NEGATIVE Ery/uL (NEGATIVE); CLARITY CLEAR (CLEAR); COLOR YELLOW (YELLOW); GLUCOSE (U) NORMAL (NORMAL); LEUKOCYTES NEGATIVE Leu/uL (NEGATIVE); NITRITE NEGATIVE (NEGATIVE); PROTEIN 1+ mg/dL (NEGATIVE); SPECIFIC GRAVITY >=1.030 (1.001-1.030); UROBILINOGEN 0.2 mg/dL (0.2-1.0)
[2021-08-07 21:20] LABS: AMPHETAMINES NEGATIVE (NEGATIVE); BARBITURATES NEGATIVE (NEGATIVE); ECSTASY (MDMA) NEGATIVE (NEGATIVE); MARIJUANA (THC) POSITIVE (NEGATIVE); METHADONE NEGATIVE (NEGATIVE); OPIATES POSITIVE (NEGATIVE); OXYCODONE NEGATIVE (NEGATIVE)
[2021-08-07 21:23] LABS: AMORPHOUS URATES CRYSTALS TRACE; BACTERIA 1+; GRANULAR CASTS TRACE
[2021-08-08 06:34] LABS: BASOPHIL 0.8 % (0-2); HCT 37.4 % (37.0-47.0); HGB 12.7 g/dl (12.5-16.0); LYMPHOCYTE 41.8 % (15-48); MCH 29.2 pg (25.0-31.0); MONOCYTE 8.9 % (0-12); MPV 10.8 fL (6.0-9.5); NEUTROPHIL 45.2 % (41-80); NRBC 0; PLT 233 K/uL (150-400); RBC 4.35 M/uL (4.20-5.40); RDW 13.2 % (11.5-14.0); WBC 7.3 K/uL (4.0-10.5)
[2021-08-08 07:45] LABS: ALBUMIN 3.4 g/dL (3.4-5.0); ALKALINE PHOSHATASE 86 U/L (46-116); ALT 24 U/L (14-59); AST 37 U/L (15-37); BILIRUBIN - TOTAL 0.8 mg/dL (0.2-1.0); BUN 14 mg/dL (7-18); BUN/CREAT RATIO (CALC) 16.7 RATIO; CHLORIDE 103 mmol/L (98-107); CO2 (BICARBONATE) 26 mmol/L (21-32); CREATININE 0.84 mg/dL (0.51-0.95); GLUCOSE 122 mg/dL (74-106); LDH 166 U/L (81-234); POTASSIUM 3.3 mmol/L (3.5-5.1)
[2021-08-08 07:51] LABS: C-REACTIVE PROTEIN < 0.20 mg/dL (<=0.90); GLOBULIN (CALCULATION) 3.4 g/dL; TOTAL PROTEIN 6.8 g/dL (6.4-8.2)
[2021-08-09 06:27] LABS: BASOPHIL 0.5 % (0-2); EOSINOPHIL 0.8 % (0-5); HCT 36.2 % (37.0-47.0); HGB 12.1 g/dl (12.5-16.0); LYMPHOCYTE 25.2 % (15-48); MCH 29.4 pg (25.0-31.0); MCHC 33.4 g/dL (32.0-36.0); MCV 87.9 fL (78.0-100.0); MPV 11.1 fL (6.0-9.5); NEUTROPHIL 65.3 % (41-80); NRBC 0; PLT 234 K/uL (150-400); RBC 4.12 M/uL (4.20-5.40); RDW 13.3 % (11.5-14.0); WBC 10.1 K/uL (4.0-10.5)
[2021-08-09 07:32] LABS: BUN 11 mg/dL (7-18); BUN/CREAT RATIO (CALC) 14.7 RATIO; C-REACTIVE PROTEIN <0.20 mg/dL (<=0.90); CHLORIDE 106 mmol/L (98-107); CO2 (BICARBONATE) 27 mmol/L (21-32); CREATININE 0.75 mg/dL (0.51-0.95); GLUCOSE 115 mg/dL (74-106); MAGNESIUM 2.3 mg/dL (1.8-2.4); POTASSIUM 4.5 mmol/L (3.5-5.1)
--- NOTE | 2021-08-09 13:22 | NUR ---
08/09/21 Patient was discharged prior to social assessment
[2021-08-10 06:08] LABS: CHLAMYDIA TRACHOMATIS, NAA Negative (Negative); NEISSERIA GONORRHOEAE, NAA Negative (Negative)
== END 2021-08-09 10:50 | disposition home or self-care (01) | DRG 391 ==
LOC: FER 08:45 → FMS 16:25
PROVIDERS: Emergency Medicine; Internal Medicine; Nurse Practitioner; ADMIT Internal Medicine
PROC: 8E0ZXY6 Isolation (ICD-10-PCS; principal; 2021-08-07)
PROC: XW033E5 Introduction of Remdesivir Anti-infective into Peripheral Vein, Percutaneous Approach, New Technology Group 5 (ICD-10-PCS; 2021-08-07)
DX: R11.2 Nausea with vomiting, unspecified (principal); U07.1 COVID-19; F12.90 Cannabis use, unspecified, uncomplicated; F31.9 Bipolar disorder, unspecified; G47.00 Insomnia, unspecified; K31.84 Gastroparesis; F17.210 Nicotine dependence, cigarettes, uncomplicated; J45.909 Unspecified asthma, uncomplicated; Z90.49 Acquired absence of other specified parts of digestive tract; Z98.890 Other specified postprocedural states; Z83.3 Family history of diabetes mellitus; Z82.3 Family history of stroke; Z82.49 Family history of ischemic heart disease and other diseases of the circulatory system; Z79.899 Other long term (current) drug therapy; Z88.5 Allergy status to narcotic agent; Z88.8 Allergy status to other drugs, medicaments and biological substances; Z86.16 Personal history of COVID-19
CPT/HCPCS: 36415; 74018; 80048; 80053; 80305; 81001; 82728; 83605; 83615; 83690; 83735; 84145; 85025; 86140; 87491; 87591; 93005; C9113; C9399; J1100; J1170; J1200; J1630; J1650; J1885; J2405; J2550; J3480; J7030; J7050; U0002

== ENCOUNTER 2021-08-13 08:36 | Emergency (ER) | payer OTHER ==
[~2021-08-13] VITALS: Ht 170.2 cm; Wt 74.8 kg
[~2021-08-13 08:36] MED LIST changes: +VRAYLAR6 MG PO
[2021-08-13 09:28] LABS: BASOPHIL 0.9 % (0-2); EOSINOPHIL 2.4 % (0-5); HCT 43.3 % (37.0-47.0); HGB 14.6 g/dl (12.5-16.0); LYMPHOCYTE 32.2 % (15-48); MCH 29.1 pg (25.0-31.0); MCHC 33.7 g/dL (32.0-36.0); MCV 86.3 fL (78.0-100.0); MONOCYTE 6.6 % (0-12); MPV 10.7 fL (6.0-9.5); NEUTROPHIL 57.7 % (41-80); NRBC 0; PLT 297 K/uL (150-400); RBC 5.02 M/uL (4.20-5.40); RDW 13.2 % (11.5-14.0)
[2021-08-13 09:56] LABS: ALBUMIN 4.1 g/dL (3.4-5.0); BILIRUBIN - TOTAL 1.1 mg/dL (0.2-1.0); BUN/CREAT RATIO (CALC) 11.3 RATIO; C-REACTIVE PROTEIN 0.7 mg/dL (<=0.90); CREATININE 0.97 mg/dL (0.51-0.95); GLOBULIN (CALCULATION) 4.2 g/dL; MAGNESIUM 2.5 mg/dL (1.8-2.4); PHOSPHORUS 3.9 mg/dL (2.6-4.7); POTASSIUM 3.5 mmol/L (3.5-5.1); TOTAL PROTEIN 8.3 g/dL (6.4-8.2)
[2021-08-13 10:04] LABS: LACTIC ACID 1.3 mmol/L (0.4-1.9)
[2021-08-13] MEDS ORDERED: PERCOCET 5-3251 EACH PO (11:12)
[2021-08-13] MEDS ORDERED: PHENERGAN25 M1 PO (11:12)
[2021-08-13] MEDS ORDERED: DIAZEPAM 5MG TAB5 MG PO (11:12)
[2021-08-13 11:25] LABS: BILIRUBIN 1+ mg/dL (NEGATIVE); BLOOD NEGATIVE Ery/uL (NEGATIVE); CLARITY CLEAR (CLEAR); COLOR YELLOW (YELLOW); GLUCOSE (U) NORMAL (NORMAL); LEUKOCYTES NEGATIVE Leu/uL (NEGATIVE); NITRITE NEGATIVE (NEGATIVE); PROTEIN 1+ mg/dL (NEGATIVE); SPECIFIC GRAVITY 1.025 (1.001-1.030); pH 6.5 (5.0-9.0)
[2021-08-13 11:36] LABS: ECSTASY (MDMA) NEGATIVE (NEGATIVE); MARIJUANA (THC) POSITIVE (NEGATIVE); METHADONE NEGATIVE (NEGATIVE); OPIATES POSITIVE (NEGATIVE)
[2021-08-13 11:37] LABS: AMPHETAMINES NEGATIVE (NEGATIVE); BARBITURATES NEGATIVE (NEGATIVE); OXYCODONE NEGATIVE (NEGATIVE)
[2021-08-13 11:54] LABS: URINARY WBC RARE
[2021-08-13 11:55] LABS: BACTERIA 1+; SQUAMOUS EPITHELIAL CELLS RARE
== END 2021-08-13 12:00 | disposition home or self-care (01) ==
LOC: FER 08:36
PROVIDERS: Emergency Medicine Emergency Medical Services
DX: R10.32 Left lower quadrant pain (principal); R11.2 Nausea with vomiting, unspecified; F17.200 Nicotine dependence, unspecified, uncomplicated; Z88.6 Allergy status to analgesic agent; Z88.8 Allergy status to other drugs, medicaments and biological substances
CPT/HCPCS: 36415; 74018; 80053; 80305; 81001; 82150; 83605; 83690; 83735; 84100; 84145; 85025; 86140; J1170; J1642; J1885; J2060; J2405; J2550; J7120

== ENCOUNTER 2021-08-16 08:18 | Emergency (ER) | payer OTHER ==
[~2021-08-16 08:18] MED LIST changes: +DIAZEPAM 5MG TAB5 MG PO
[2021-08-16 09:01] LABS: BASOPHIL 0.9 % (0-2); EOSINOPHIL 2.1 % (0-5); HGB 13.6 g/dl (12.5-16.0); LYMPHOCYTE 31.5 % (15-48); MCV 85.3 fL (78.0-100.0); MONOCYTE 8.9 % (0-12); MPV 10.9 fL (6.0-9.5); NEUTROPHIL 56.5 % (41-80); NRBC 0; PLT 306 K/uL (150-400); RBC 4.69 M/uL (4.20-5.40); WBC 7.7 K/uL (4.0-10.5)
[2021-08-16 09:21] LABS: ALBUMIN 4.1 g/dL (3.4-5.0); BILIRUBIN - TOTAL 0.9 mg/dL (0.2-1.0); BUN/CREAT RATIO (CALC) 9.4 RATIO; CREATININE 0.96 mg/dL (0.51-0.95); GLOBULIN (CALCULATION) 4.2 g/dL; POTASSIUM 3.6 mmol/L (3.5-5.1); TOTAL PROTEIN 8.3 g/dL (6.4-8.2)
[2021-08-16] MEDS ORDERED: PHENERGAN25 M1 PO (10:18)
[2021-08-16] MEDS ORDERED: PROCHLORPERAZIN10 MG PO (10:20)
== END 2021-08-16 11:05 | disposition home or self-care (01) ==
LOC: FER 08:18
PROVIDERS: Internal Medicine
DX: K31.84 Gastroparesis (principal); J45.909 Unspecified asthma, uncomplicated; F17.220 Nicotine dependence, chewing tobacco, uncomplicated; Z88.6 Allergy status to analgesic agent; Z88.8 Allergy status to other drugs, medicaments and biological substances
CPT/HCPCS: 36415; 80053; 83690; 85025; J0780; J1170; J1642; J2550; J7030

== ENCOUNTER 2021-08-17 07:27 | Emergency (ER) | payer OTHER ==
[~2021-08-17 07:27] MED LIST changes: +PROCHLORPERAZIN10 MG PO
[2021-08-17 08:59] LABS: BASOPHIL 1.1 % (0-2); EOSINOPHIL 2.1 % (0-5); HCT 38.8 % (37.0-47.0); HGB 12.8 g/dl (12.5-16.0); LYMPHOCYTE 32.3 % (15-48); MONOCYTE 7.8 % (0-12); MPV 10.6 fL (6.0-9.5); NEUTROPHIL 56.4 % (41-80); NRBC 0; PLT 261 K/uL (150-400); RBC 4.41 M/uL (4.20-5.40); RDW 12.9 % (11.5-14.0); WBC 6.7 K/uL (4.0-10.5)
[2021-08-17 09:28] LABS: ALBUMIN 3.6 g/dL (3.4-5.0); BILIRUBIN - TOTAL 0.8 mg/dL (0.2-1.0); BUN/CREAT RATIO (CALC) 8.3 RATIO; CREATININE 0.84 mg/dL (0.51-0.95); GLOBULIN (CALCULATION) 3.7 g/dL; POTASSIUM 3.2 mmol/L (3.5-5.1); TOTAL PROTEIN 7.3 g/dL (6.4-8.2)
== END 2021-08-17 12:22 | disposition home or self-care (01) ==
LOC: FER 07:27
PROVIDERS: Emergency Medicine
DX: K31.84 Gastroparesis (principal); Z88.6 Allergy status to analgesic agent; Z88.8 Allergy status to other drugs, medicaments and biological substances
CPT/HCPCS: 36415; 80053; 85025; 93005; J1642; J1790; J1885; J7030

== ENCOUNTER 2021-08-24 11:28 | Emergency (ER) | payer OTHER ==
[2021-08-24 12:12] LABS: BILIRUBIN NEGATIVE (NEGATIVE); BLOOD NEGATIVE Ery/uL (NEGATIVE); CLARITY CLEAR (CLEAR); COLOR YELLOW (YELLOW); GLUCOSE (U) NORMAL (NORMAL); LEUKOCYTES NEGATIVE Leu/uL (NEGATIVE); NITRITE NEGATIVE (NEGATIVE); PROTEIN NEGATIVE (NEGATIVE); SPECIFIC GRAVITY 1.015 (1.001-1.030); UROBILINOGEN 0.2 mg/dL (0.2-1.0); pH 8.5 (5.0-9.0)
[2021-08-24 12:16] LABS: ECSTASY (MDMA) NEGATIVE (NEGATIVE); MARIJUANA (THC) POSITIVE (NEGATIVE); METHADONE NEGATIVE (NEGATIVE)
[2021-08-24 12:17] LABS: AMPHETAMINES NEGATIVE (NEGATIVE); BARBITURATES NEGATIVE (NEGATIVE); OPIATES POSITIVE (NEGATIVE); OXYCODONE NEGATIVE (NEGATIVE)
== END 2021-08-24 14:38 | disposition left against medical advice (07) ==
LOC: FER 11:28
PROVIDERS: Emergency Medicine
DX: R10.84 Generalized abdominal pain (principal); R11.2 Nausea with vomiting, unspecified; F17.290 Nicotine dependence, other tobacco product, uncomplicated; Z88.6 Allergy status to analgesic agent; Z88.8 Allergy status to other drugs, medicaments and biological substances; Z53.8 Procedure and treatment not carried out for other reasons
CPT/HCPCS: 36415; 80305; 81003; 83735; 99284; J1790

== ENCOUNTER 2021-10-09 21:04 | Emergency (ER) | payer OTHER ==
[2021-10-09 22:56] LABS: BASOPHIL 0.4 % (0-2); EOSINOPHIL 0 % (0-5); HCT 45.6 % (37.0-47.0); HGB 15.3 g/dl (12.5-16.0); LYMPHOCYTE 8.2 % (15-48); MCH 29.3 pg (25.0-31.0); MCHC 33.6 g/dL (32.0-36.0); MCV 87.4 fL (78.0-100.0); MONOCYTE 5.1 % (0-12); MPV 10.9 fL (6.0-9.5); NEUTROPHIL 85.9 % (41-80); NRBC 0; PLT 308 K/uL (150-400); RBC 5.22 M/uL (4.20-5.40); RDW 13.5 % (11.5-14.0); WBC 19.8 K/uL (4.0-10.5)
[2021-10-09 23:33] LABS: ALBUMIN 5.3 g/dL (3.4-5.0); BILIRUBIN - TOTAL 1.2 mg/dL (0.2-1.0); BUN/CREAT RATIO (CALC) 5.2 RATIO; CREATININE 2.3 mg/dL (0.51-0.95); GLOBULIN (CALCULATION) 4.6 g/dL; TOTAL PROTEIN 9.9 g/dL (6.4-8.2)
[2021-10-09 23:43] LABS: MAGNESIUM 2.7 mg/dL (1.8-2.4)
[2021-10-10 01:01] LABS: BILIRUBIN 2+ mg/dL (NEGATIVE); BLOOD NEGATIVE Ery/uL (NEGATIVE); CLARITY HAZY (CLEAR); COLOR YELLOW (YELLOW); GLUCOSE (U) NORMAL (NORMAL); LEUKOCYTES NEGATIVE Leu/uL (NEGATIVE); NITRITE NEGATIVE (NEGATIVE); PROTEIN 1+ mg/dL (NEGATIVE); SPECIFIC GRAVITY >=1.030 (1.001-1.030); UROBILINOGEN 0.2 mg/dL (0.2-1.0)
[2021-10-10 01:06] LABS: AMPHETAMINES NEGATIVE (NEGATIVE); BARBITURATES NEGATIVE (NEGATIVE); ECSTASY (MDMA) NEGATIVE (NEGATIVE); MARIJUANA (THC) POSITIVE (NEGATIVE); METHADONE NEGATIVE (NEGATIVE); OPIATES POSITIVE (NEGATIVE)
[2021-10-10 01:07] LABS: OXYCODONE POSITIVE (NEGATIVE)
[2021-10-10 01:15] LABS: BACTERIA 3+; CALCIUM OXALATE CRYSTALS MODERATE; SQUAMOUS EPITHELIAL CELLS RARE; URINARY RBC RARE; URINARY WBC RARE
== END 2021-10-10 08:32 | disposition home or self-care (01) ==
LOC: FER 21:04
PROVIDERS: Emergency Medicine Emergency Medical Services; Nurse Practitioner Family
DX: E86.0 Dehydration (principal); N17.9 Acute kidney failure, unspecified; D72.829 Elevated white blood cell count, unspecified; F17.210 Nicotine dependence, cigarettes, uncomplicated; Z88.6 Allergy status to analgesic agent; Z88.8 Allergy status to other drugs, medicaments and biological substances
CPT/HCPCS: 36415; 80053; 80305; 81001; 82565; 83605; 83690; 83735; 84484; 85025; 87040; 93005; J0780; J1170; J1642; J2405; J2550; J3360; J7030; J7120

== ENCOUNTER 2021-10-14 22:34 | Emergency (ER) | payer OTHER ==
[2021-10-15 03:24] LABS: ALBUMIN 4.2 g/dL (3.4-5.0); BILIRUBIN - TOTAL 1.3 mg/dL (0.2-1.0); GLOBULIN (CALCULATION) 3.6 g/dL; POTASSIUM 3.2 mmol/L (3.5-5.1); TOTAL PROTEIN 7.8 g/dL (6.4-8.2)
[2021-10-15 03:25] LABS: BASOPHIL 0.5 % (0-2); EOSINOPHIL 0.4 % (0-5); HCT 38.8 % (37.0-47.0); HGB 13.1 g/dl (12.5-16.0); LYMPHOCYTE 16.1 % (15-48); MCH 28.5 pg (25.0-31.0); MCHC 33.8 g/dL (32.0-36.0); MCV 84.3 fL (78.0-100.0); MONOCYTE 4.9 % (0-12); MPV 11.6 fL (6.0-9.5); NEUTROPHIL 77.3 % (41-80); NRBC 0; PLT 324 K/uL (150-400); RDW 12.9 % (11.5-14.0); WBC 9.5 K/uL (4.0-10.5)
[2021-10-15 03:33] LABS: LACTIC ACID 1.6 mmol/L (0.4-1.9)
== END 2021-10-15 07:10 | disposition home or self-care (01) ==
LOC: FER 22:34
PROVIDERS: Emergency Medicine Emergency Medical Services
DX: K31.84 Gastroparesis (principal); F17.210 Nicotine dependence, cigarettes, uncomplicated; Z88.6 Allergy status to analgesic agent; Z88.8 Allergy status to other drugs, medicaments and biological substances
CPT/HCPCS: 36415; 74018; 80053; 83605; 83690; 84145; 85025; J1170; J2550; J7120

== ENCOUNTER 2021-11-14 21:55 | Emergency (ER) | payer OTHER ==
[2021-11-14 22:29] LABS: BILIRUBIN 1+ mg/dL (NEGATIVE); BLOOD 2+ Ery/uL (NEGATIVE); COLOR YELLOW (YELLOW); GLUCOSE (U) NORMAL (NORMAL); LEUKOCYTES 1+ Leu/uL (NEGATIVE); NITRITE POSITIVE (NEGATIVE); PROTEIN 1+ mg/dL (NEGATIVE); SPECIFIC GRAVITY 1.025 (1.001-1.030)
[2021-11-14 22:32] LABS: CLARITY CLOUDY (CLEAR)
[2021-11-14 22:35] LABS: BACTERIA 4+; URINARY RBC 20-50; URINARY WBC 20-50
[2021-11-15 00:01] LABS: BASOPHIL 0.7 % (0-2); EOSINOPHIL 3.2 % (0-5); HGB 12.7 g/dl (12.5-16.0); LYMPHOCYTE 40.7 % (15-48); MCHC 31.8 g/dL (32.0-36.0); MCV 91.3 fL (78.0-100.0); MPV 10.7 fL (6.0-9.5); NEUTROPHIL 51.3 % (41-80); NRBC 0; PLT 290 K/uL (150-400); RBC 4.38 M/uL (4.20-5.40); RDW 13.7 % (11.5-14.0); WBC 8.2 K/uL (4.0-10.5)
[2021-11-15 00:19] LABS: ALBUMIN 3.9 g/dL (3.4-5.0); BILIRUBIN - TOTAL 0.6 mg/dL (0.2-1.0); BUN/CREAT RATIO (CALC) 8.6 RATIO; CREATININE 0.93 mg/dL (0.51-0.95); GLOBULIN (CALCULATION) 3.9 g/dL; POTASSIUM 3.5 mmol/L (3.5-5.1); TOTAL PROTEIN 7.8 g/dL (6.4-8.2)
[2021-11-15] MEDS ORDERED: MACROBID100 MG PO (02:15)
== END 2021-11-15 02:40 | disposition home or self-care (01) ==
LOC: FER 21:55
PROVIDERS: Emergency Medicine; Physician Assistant
DX: N39.0 Urinary tract infection, site not specified (principal); F17.200 Nicotine dependence, unspecified, uncomplicated; Z88.5 Allergy status to narcotic agent; Z88.8 Allergy status to other drugs, medicaments and biological substances
CPT/HCPCS: 36415; 80053; 81001; 83690; 85025; 99283; J1885

== ENCOUNTER 2022-01-10 16:34 | Emergency (ER) | payer OTHER ==
[~2022-01-10 16:34] MED LIST changes: +MACROBID100 MG PO
[2022-01-10 17:33] LABS: BASOPHIL 0.4 % (0-2); EOSINOPHIL 0.1 % (0-5); HCT 32.3 % (37.0-47.0); LYMPHOCYTE 14.6 % (15-48); MCH 28.9 pg (25.0-31.0); MCHC 34.1 g/dL (32.0-36.0); MPV 11.5 fL (6.0-9.5); NEUTROPHIL 80.7 % (41-80); NRBC 0; PLT 242 K/uL (150-400); RDW 13.9 % (11.5-14.0)
[2022-01-10 17:52] LABS: ALBUMIN 3.6 g/dL (3.4-5.0); BILIRUBIN - TOTAL 0.8 mg/dL (0.2-1.0); BUN/CREAT RATIO (CALC) 14.5 RATIO; CREATININE 0.62 mg/dL (0.51-0.95); GLOBULIN (CALCULATION) 3.3 g/dL; POTASSIUM 3.3 mmol/L (3.5-5.1); TOTAL PROTEIN 6.9 g/dL (6.4-8.2)
[2022-01-11 01:34] LABS: BILIRUBIN NEGATIVE (NEGATIVE); BLOOD NEGATIVE Ery/uL (NEGATIVE); CLARITY CLEAR (CLEAR); COLOR YELLOW (YELLOW); GLUCOSE (U) NORMAL (NORMAL); LEUKOCYTES NEGATIVE Leu/uL (NEGATIVE); NITRITE NEGATIVE (NEGATIVE); PROTEIN NEGATIVE (NEGATIVE); pH 7.5 (5.0-9.0)
[2022-01-11 01:35] LABS: HCG (URINE) SCREEN NEGATIVE (NEGATIVE)
== END 2022-01-11 02:30 | disposition home or self-care (01) ==
LOC: FER 16:34
PROVIDERS: Emergency Medicine; Physician Assistant
DX: R11.2 Nausea with vomiting, unspecified (principal); F17.200 Nicotine dependence, unspecified, uncomplicated; Z88.6 Allergy status to analgesic agent; Z88.8 Allergy status to other drugs, medicaments and biological substances
CPT/HCPCS: 36415; 80053; 81003; 83690; 84703; 85025; J1170; J1630; J1642; J2405; J7030; Q0164; Q0169

== ENCOUNTER 2022-02-07 07:24 | Inpatient (IN) | payer OTHER ==
[~2022-02-07] VITALS: Ht 170.2 cm; Wt 64.0 kg
[2022-02-07 08:34] LABS: BASOPHIL 0.4 % (0-2); EOSINOPHIL 0 % (0-5); HCT 46.6 % (37.0-47.0); HGB 15.5 g/dl (12.5-16.0); LYMPHOCYTE 12.4 % (15-48); MCH 28.7 pg (25.0-31.0); MCHC 33.3 g/dL (32.0-36.0); MCV 86.1 fL (78.0-100.0); MONOCYTE 7.5 % (0-12); MPV 10.9 fL (6.0-9.5); NEUTROPHIL 79.2 % (41-80); NRBC 0; PLT 339 K/uL (150-400); RBC 5.41 M/uL (4.20-5.40); RDW 14.6 % (11.5-14.0); WBC 16.6 K/uL (4.0-10.5)
[2022-02-07 08:37] LABS: ALBUMIN 4.8 g/dL (3.4-5.0); BILIRUBIN - TOTAL 1.2 mg/dL (0.2-1.0); CREATININE 3.49 mg/dL (0.51-0.95); GLOBULIN (CALCULATION) 5.2 g/dL; POTASSIUM 4.2 mmol/L (3.5-5.1)
[2022-02-07 08:39] LABS: CORONAVIRUS 2019 SARS-COV-2 NEGATIVE (NEGATIVE); INFLUENZA A NAA NEGATIVE (NEGATIVE)
[2022-02-07 09:08] LABS: LACTIC ACID 2.7 mmol/L (0.4-1.9)
[2022-02-07] MEDS ORDERED: BENTYL10 MG PO (11:54)
[2022-02-07] MEDS ORDERED: ADVIL200 M1 PO (11:58)
[2022-02-07] MEDS ORDERED: VRAYLAR6 MG PO (11:59)
[2022-02-07] MEDS ORDERED: EYE DROPS15 M1 EYEBOTH (12:01)
[2022-02-07] MEDS ORDERED: NORTRIPTYLINE H50 MG PO (12:04)
[2022-02-07 13:53] LABS: BILIRUBIN NEGATIVE (NEGATIVE); BLOOD TRACE-INTACT Ery/uL (NEGATIVE); CLARITY HAZY (CLEAR); COLOR YELLOW (YELLOW); GLUCOSE (U) NORMAL (NORMAL); LEUKOCYTES NEGATIVE Leu/uL (NEGATIVE); NITRITE NEGATIVE (NEGATIVE); PROTEIN 1+ mg/dL (NEGATIVE); SPECIFIC GRAVITY 1.025 (1.001-1.030); UROBILINOGEN 0.2 mg/dL (0.2-1.0)
[2022-02-07 13:57] LABS: ECSTASY (MDMA) NEGATIVE (NEGATIVE); MARIJUANA (THC) POSITIVE (NEGATIVE); METHADONE NEGATIVE (NEGATIVE)
[2022-02-07 13:58] LABS: AMPHETAMINES NEGATIVE (NEGATIVE); BARBITURATES NEGATIVE (NEGATIVE); OPIATES POSITIVE (NEGATIVE); OXYCODONE NEGATIVE (NEGATIVE)
[2022-02-07 14:08] LABS: BACTERIA 3+; MUCOUS TRACE; STARCH GRANULES PRESENT
[2022-02-07 14:11] LABS: CALCIUM OXALATE CRYSTALS TRACE
[2022-02-08 06:11] LABS: BUN/CREAT RATIO (CALC) 11.7 RATIO; CREATININE 0.77 mg/dL (0.51-0.95); POTASSIUM 3.3 mmol/L (3.5-5.1)
[2022-02-08 06:14] LABS: BASOPHIL 0.9 % (0-2); EOSINOPHIL 0.8 % (0-5); HCT 31.2 % (37.0-47.0); HGB 10.8 g/dl (12.5-16.0); LYMPHOCYTE 34.1 % (15-48); MCH 29.3 pg (25.0-31.0); MCHC 34.6 g/dL (32.0-36.0); MCV 84.6 fL (78.0-100.0); MONOCYTE 6.7 % (0-12); MPV 11.5 fL (6.0-9.5); NEUTROPHIL 57.2 % (41-80); NRBC 0; PLT 215 K/uL (150-400); RBC 3.69 M/uL (4.20-5.40); RDW 14.4 % (11.5-14.0); WBC 10.2 K/uL (4.0-10.5)
--- NOTE | 2022-02-08 08:47 | NUR ---
PATIENT WAS NOT HAPPY THIS AM WHEN DOING MORNING ROUNDS. PATIENT WAS NOT HAPPY WITH NOT GETTING HER MEDICATION (DILAUDID AND PHENERGAN) EVERY 4 HOURS, WAS ORDERED BY MD FOR EVERY 6 HOURS. WAS VERY UNHAPPY THAT SHE WAS BEING DISCHARGED. PATIENT ASKED TO SEE DR HUSAIN, RELAYED MESSAGE TO HIM. HE STATED THAT SHE IS DISCHARGED. PATIENT HAS REFUSED TO LEAVE THE ROOM, STATES THAT SHE NEEDED TO SEE SOMEONE FOR A COMPLAINT. PATIENT SIGNED DC AND PORT WAS DEACCESSED.
--- NOTE | 2022-02-08 20:07 | NUR ---
PT UPSET AND ASKING FOR NURSING FUNDRAISING COORDINATOR OR PT ADVOCATE. FUNDRAISING COORDINATOR ENTERS PT'S ROOM AND PT STATES THAT THE MALE NURSE PRACTITIONER WAS JUST IN HER ROOM YELLING AT HER AND THAT SHE IS NOW REQUESTING TO BE TRANSFERRED TO ANOTHER FACILITY. PT STATES SHE IS NOT HAPPY THAT THEY ARE NOT GIVING HER THE IV PAIN MEDICATIONS ANYMORE. SHE STATES THAT THE DOCTOR HAS NOT TALKED TO HER ALL DAY. PT HAS BEEN SEEN BY DR HUSAIN AND RENÉE QUITLINE COUNSELOR. I INFORMED PT THAT THE QUITLINE COUNSELOR HAS INCREASED HER ORAL PAIN MEDICATION DOSING FROM 5/325 TO 10/325. PT STATES THAT STILL WILL NOT HELP AND IS NOW REQUESTING HALDOL. PT STATES THAT SHE WILL AGREE TO STAY WITH THE INCREASED PAIN MEDS AND IF SHE GETS THE HALDOL. RENÉE DIALLO AWARE OF PT REQUEST. AWAITING FURTHER ORDERS. PT'S PRIMARY RN AWARE OF THE FULL EXCHANGE.
[2022-02-09] MEDS ORDERED: PHENERGAN25 M1 PO (10:00)
[2022-02-09] MEDS ORDERED: REGLAN5 MG PO (10:00)
[2022-02-09] MEDS ORDERED: ONDANSETRON ODT4 MG PO (10:00)
== END 2022-02-09 11:03 | disposition home or self-care (01) | DRG 392 ==
LOC: FER 07:24 → FMS 10:36
PROVIDERS: Emergency Medicine; ADMIT Allergy & Immunology Allergy
DX: K31.84 Gastroparesis (principal); N17.9 Acute kidney failure, unspecified; Z20.822 Contact with and (suspected) exposure to COVID-19; E86.0 Dehydration; F31.9 Bipolar disorder, unspecified; F12.90 Cannabis use, unspecified, uncomplicated; G47.00 Insomnia, unspecified; F17.210 Nicotine dependence, cigarettes, uncomplicated; K58.9 Irritable bowel syndrome, unspecified; Z90.49 Acquired absence of other specified parts of digestive tract; Z88.5 Allergy status to narcotic agent; Z79.899 Other long term (current) drug therapy
CPT/HCPCS: 36415; 36600; 71045; 80048; 80053; 80305; 81001; 82803; 83605; 83690; 83735; 84145; 84484; 84703; 85025; 93005; J1170; J1364; J1630; J1642; J1650; J1790; J2405; J2550; J2800; J7030; J7050; J7120; U0002

== ENCOUNTER 2022-02-10 19:20 | Emergency (ER) | payer OTHER ==
[~2022-02-10 19:20] MED LIST changes: +ADVIL200 M1 PO; +EYE DROPS15 M1 EYEBOTH; +NORTRIPTYLINE H50 MG PO; +REGLAN5 MG PO
[2022-02-11 01:53] LABS: BASOPHIL 0.7 % (0-2); BILIRUBIN NEGATIVE (NEGATIVE); BLOOD NEGATIVE Ery/uL (NEGATIVE); CLARITY CLEAR (CLEAR); COLOR YELLOW (YELLOW); EOSINOPHIL 0.8 % (0-5); GLUCOSE (U) NORMAL (NORMAL); HCT 36.1 % (37.0-47.0); HGB 12.1 g/dl (12.5-16.0); LEUKOCYTES NEGATIVE Leu/uL (NEGATIVE); LYMPHOCYTE 20.1 % (15-48); MCH 28.7 pg (25.0-31.0); MCHC 33.5 g/dL (32.0-36.0); MCV 85.7 fL (78.0-100.0); MONOCYTE 5.3 % (0-12); MPV 11.8 fL (6.0-9.5); NEUTROPHIL 72.7 % (41-80); NITRITE NEGATIVE (NEGATIVE); NRBC 0; PLT 309 K/uL (150-400); PROTEIN 2+ mg/dL (NEGATIVE); RBC 4.21 M/uL (4.20-5.40); RDW 14.2 % (11.5-14.0); SPECIFIC GRAVITY 1.015 (1.001-1.030); WBC 11.2 K/uL (4.0-10.5)
[2022-02-11 01:58] LABS: MUCOUS MODERATE; URINARY RBC RARE; URINARY WBC RARE
[2022-02-11 01:59] LABS: CALCIUM OXALATE CRYSTALS LARGE
[2022-02-11 02:04] LABS: BILIRUBIN - TOTAL 0.9 mg/dL (0.2-1.0); BUN/CREAT RATIO (CALC) 11.1 RATIO; CREATININE 0.72 mg/dL (0.51-0.95); GLOBULIN (CALCULATION) 3.9 g/dL; POTASSIUM 3.7 mmol/L (3.5-5.1); TOTAL PROTEIN 7.9 g/dL (6.4-8.2)
[2022-02-11] MEDS ORDERED: PHENERGAN25 M1 PO (03:43)
[2022-02-11] MEDS ORDERED: ONDANSETRON ODT4 MG PO (03:43)
== END 2022-02-11 04:16 | disposition home or self-care (01) ==
LOC: FER 19:20
PROVIDERS: Internal Medicine
DX: K31.84 Gastroparesis (principal); F17.210 Nicotine dependence, cigarettes, uncomplicated; Z88.6 Allergy status to analgesic agent; Z28.310 Unvaccinated for COVID-19
CPT/HCPCS: 36415; 80053; 81001; 83690; 85025; J1170; J1630; J1642; J2060; J2405; J7120

== ENCOUNTER 2022-02-12 11:19 | Emergency (ER) | payer OTHER ==
[2022-02-12 12:12] LABS: BASOPHIL 0.7 % (0-2); EOSINOPHIL 1.2 % (0-5); HGB 11.8 g/dl (12.5-16.0); LYMPHOCYTE 25.2 % (15-48); MCH 28.9 pg (25.0-31.0); MCHC 33.7 g/dL (32.0-36.0); MCV 85.8 fL (78.0-100.0); MONOCYTE 5.7 % (0-12); MPV 10.8 fL (6.0-9.5); NEUTROPHIL 66.9 % (41-80); NRBC 0; PLT 331 K/uL (150-400); RBC 4.08 M/uL (4.20-5.40); WBC 7.4 K/uL (4.0-10.5)
[2022-02-12 12:21] LABS: BUN/CREAT RATIO (CALC) 11.5 RATIO; CREATININE 0.78 mg/dL (0.51-0.95); POTASSIUM 3.6 mmol/L (3.5-5.1)
== END 2022-02-12 14:25 | disposition home or self-care (01) ==
LOC: FER 11:19
PROVIDERS: Emergency Medicine
DX: R11.10 Vomiting, unspecified (principal); F17.210 Nicotine dependence, cigarettes, uncomplicated; Z88.6 Allergy status to analgesic agent
CPT/HCPCS: 36415; 80048; 85025; J1885; J2550; J7030

== ENCOUNTER 2022-02-13 21:55 | Emergency (ER) | payer OTHER ==
[2022-02-13 23:19] LABS: BASOPHIL 0.9 % (0-2); EOSINOPHIL 3.7 % (0-5); HCT 36.2 % (37.0-47.0); HGB 12.1 g/dl (12.5-16.0); LYMPHOCYTE 38.9 % (15-48); MCH 28.7 pg (25.0-31.0); MCHC 33.4 g/dL (32.0-36.0); MCV 85.8 fL (78.0-100.0); MONOCYTE 7.3 % (0-12); MPV 10.5 fL (6.0-9.5); NEUTROPHIL 49.1 % (41-80); NRBC 0; PLT 321 K/uL (150-400); RBC 4.22 M/uL (4.20-5.40)
[2022-02-13 23:28] LABS: ALBUMIN 3.8 g/dL (3.4-5.0); BILIRUBIN - TOTAL 0.5 mg/dL (0.2-1.0); BUN/CREAT RATIO (CALC) 6.7 RATIO; CREATININE 0.89 mg/dL (0.51-0.95); GLOBULIN (CALCULATION) 3.7 g/dL; TOTAL PROTEIN 7.5 g/dL (6.4-8.2)
== END 2022-02-14 03:15 | disposition home or self-care (01) ==
LOC: FER 21:55
PROVIDERS: Internal Medicine
DX: R10.9 Unspecified abdominal pain (principal); R11.2 Nausea with vomiting, unspecified; E87.6 Hypokalemia; D64.9 Anemia, unspecified; F17.210 Nicotine dependence, cigarettes, uncomplicated; Z88.6 Allergy status to analgesic agent; Z88.8 Allergy status to other drugs, medicaments and biological substances
CPT/HCPCS: 36415; 80053; 83690; 85025; J0780; J1200; J1630; J1642; J3475

== ENCOUNTER 2022-02-23 22:54 | Emergency (ER) | payer OTHER ==
[2022-02-24 00:53] LABS: BASOPHIL 1.2 % (0-2); EOSINOPHIL 1.4 % (0-5); HCT 37.1 % (37.0-47.0); HGB 12.3 g/dl (12.5-16.0); LYMPHOCYTE 36.7 % (15-48); MCH 28.8 pg (25.0-31.0); MCHC 33.2 g/dL (32.0-36.0); MCV 86.9 fL (78.0-100.0); MONOCYTE 5.6 % (0-12); NRBC 0; PLT 300 K/uL (150-400); RBC 4.27 M/uL (4.20-5.40); RDW 14.6 % (11.5-14.0)
[2022-02-24 01:10] LABS: ALBUMIN 3.9 g/dL (3.4-5.0); BUN/CREAT RATIO (CALC) 20.3 RATIO; CREATININE 0.79 mg/dL (0.51-0.95); GLOBULIN (CALCULATION) 3.9 g/dL; POTASSIUM 3.5 mmol/L (3.5-5.1); TOTAL PROTEIN 7.8 g/dL (6.4-8.2)
== END 2022-02-24 05:10 | disposition home or self-care (01) ==
LOC: FER 22:54
PROVIDERS: Internal Medicine
DX: R10.11 Right upper quadrant pain (principal); R11.2 Nausea with vomiting, unspecified; F17.210 Nicotine dependence, cigarettes, uncomplicated; Z88.6 Allergy status to analgesic agent; Z88.8 Allergy status to other drugs, medicaments and biological substances
CPT/HCPCS: 36415; 80053; 83690; 85025; 96372; J1170; J1630; J2550; Q0169

== ENCOUNTER 2022-05-14 14:13 | Emergency (ER) | payer OTHER ==
[2022-05-14 15:55] LABS: BASOPHIL 0.3 % (0-2); EOSINOPHIL 0.2 % (0-5); HCT 34.1 % (37.0-47.0); HGB 11.6 g/dl (12.5-16.0); LYMPHOCYTE 13.3 % (15-48); MCH 29.2 pg (25.0-31.0); MCV 85.9 fL (78.0-100.0); MPV 11.5 fL (6.0-9.5); NEUTROPHIL 80.7 % (41-80); NRBC 0; PLT 286 K/uL (150-400); RBC 3.97 M/uL (4.20-5.40); RDW 12.8 % (11.5-14.0); WBC 10.6 K/uL (4.0-10.5)
[2022-05-14 16:09] LABS: BILIRUBIN - TOTAL 0.4 mg/dL (0.2-1.0); BUN/CREAT RATIO (CALC) 12.5 RATIO; CREATININE 0.56 mg/dL (0.51-0.95); GLOBULIN (CALCULATION) 4.4 g/dL; POTASSIUM 2.9 mmol/L (3.5-5.1); TOTAL PROTEIN 7.4 g/dL (6.4-8.2)
== END 2022-05-14 18:58 | disposition home or self-care (01) ==
LOC: FER 14:13
PROVIDERS: Nurse Practitioner Family
DX: K31.84 Gastroparesis (principal); E87.6 Hypokalemia; Z88.5 Allergy status to narcotic agent; Z88.8 Allergy status to other drugs, medicaments and biological substances
CPT/HCPCS: 36415; 80053; 83690; 85025; J1642; J1885; J2405; J3480; J7030